=== PATIENT | female | born 1980 | race Caucasian/White ===

== ENCOUNTER 2016-03-30 12:33 | Outpatient (CLI) | payer MEDICAID | END 2016-03-30 12:34 | disposition home or self-care (01) | DX: Z36 Encounter for antenatal screening of mother (principal) ==

== ENCOUNTER 2016-04-22 11:45 | Outpatient (CLI) | payer MEDICAID | END 2016-04-22 11:46 | disposition home or self-care (01) | DX: Z36 Encounter for antenatal screening of mother (principal) ==

== ENCOUNTER 2016-06-03 12:41 | Outpatient (CLI) | payer MEDICAID | END 2016-06-03 12:42 | disposition home or self-care (01) | DX: Z36 Encounter for antenatal screening of mother (principal) ==

== ENCOUNTER 2016-06-15 19:18 | Outpatient (CLI) | payer MEDICAID ==
[2016-06-15] MEDS ORDERED: LACTATED RINGERS 500 ML IV ONE (19:40)
[2016-06-15] MEDS ORDERED: LACTATED RINGERS 1,000 ML IV ONE (20:00)
[2016-06-15 20:03] VITALS: BP 117/78
[2016-06-15] MEDS: ONDANSETRON 4 MG/2 ML VIAL IVP PRN ×2 (20:31→23:48)
[2016-06-15] MEDS ORDERED: SODIUM CHLORIDE FLUSH 0.9% 10 ML SYRINGE IVP ONE (23:52)
== END 2016-06-16 00:05 | disposition home or self-care (01) ==
LOC: WFO 19:18 → OB 19:20 → WFO 06-16 00:05
PROVIDERS: ATTEND Obstetrics & Gynecology
DX: O21.2 Late vomiting of pregnancy (principal); Z3A.31 31 weeks gestation of pregnancy
CPT/HCPCS: 96361; 96374; 96376; 99213

== ENCOUNTER 2016-07-29 15:47 | Outpatient (CLI) | payer MEDICAID | END 2016-07-29 15:48 | LOC: LAB.R 15:47 | PROVIDERS: ATTEND Obstetrics & Gynecology | DX: Z36 Encounter for antenatal screening of mother (principal) | CPT/HCPCS: 87081 ==

== ENCOUNTER 2016-08-04 21:48 | Outpatient (CLI) | payer MEDICAID ==
[2016-08-05 01:49] VITALS: BP 103/54
== END 2016-08-05 01:10 | disposition home or self-care (01) ==
LOC: WFO 21:48 → OB 21:51 → WFO 08-05 01:10
PROVIDERS: ATTEND Obstetrics & Gynecology
DX: O47.1 False labor at or after 37 completed weeks of gestation (principal); Z3A.38 38 weeks gestation of pregnancy
CPT/HCPCS: 99213

== ENCOUNTER 2016-08-05 05:29 | Inpatient (IN) | payer MEDICAID ==
[2016-08-05] MEDS ORDERED: SODIUM CHLORIDE FLUSH 0.9% 10 ML SYRINGE IVP PRN (05:58)
[2016-08-05] MEDS ORDERED: ONDANSETRON 4 MG/2 ML VIAL IVP PRN ×2 (05:58→09:31)
[2016-08-05] MEDS ORDERED: fentaNYL 100 MCG/2 ML VIAL IVP PRN (05:58)
[2016-08-05 06:57] LABS: BASOPHILS # (AUTO) 0.1 10^3/uL (0.0-0.1); BASOPHILS % (AUTO) 0.7 %; EOSINOPHILS # (AUTO) 0.2 10^3/uL (0.0-0.7); HCT - HEMATOCRIT 34.9 % (37.0-47.0); HGB - HEMOGLOBIN 11.9 g/dL (12.0-16.0); LYMPHOCYTES # (AUTO) 1.7 10^3/uL (1.5-3.5); LYMPHOCYTES % (AUTO) 14.8 %; MEAN CORPUSCULAR VOLUME 88.3 fL (81.0-99.0); MEAN PLATELET VOLUME 11.3 fL (7.9-10.8); MONOCYTES # (AUTO) 0.8 10^3/uL (0.0-1.0); MONOCYTES % (AUTO) 6.6 %; NEUTROPHILS # (AUTO) 8.9 10^3/uL (1.5-6.6); NEUTROPHILS % (AUTO) 75.9 %; RED BLOOD COUNT 3.95 10^6/uL (4.20-5.40); RED CELL DISTRIBUTION WIDTH 12.7 % (12.0-15.0); UNCORRECTED WHITE BLOOD COUNT 11.8 x10^3/uL; WHITE BLOOD COUNT 11.8 x10^3/uL (4.8-10.8)
[2016-08-05] MEDS ORDERED: traMADol 50 MG TABLET PO SCH (06:57)
[2016-08-05] MEDS: LACTATED RINGERS 1,000 ML IV SCH ×2 (07:01→09:29)
--- NOTE | 2016-08-05 07:07 | HISTORY & PHYSICAL EXAMINATION ---
DATE OF ADMISSION: 08/05/2016 IDENTIFICATION: This is a 35-year-old G5, P3-0-1-3 with a 38-4/7-week intrauterine . EDC 08/15/2016, changed via 5-week ultrasound. HISTORY OF PRESENT ILLNESS: The patient is a patient of [facility] who had presented on 08/04/2016 with complaints of pinkish-tinged vaginal discharge. She was concerned because with her last delivery she went so precipitously that she delivered in the parking lot of a [employer]. After thorough examinations over a prolonged period of time, the patient did not have any change in her cervical examination. She was sent home. She has represented this morning with complaints of loss of fluid this time. She is grossly ruptured on examination and light meconium is noted. The patient recalled that she ruptured at about 0400. By nurse exam, she is 4.5 cm dilated, 70% effaced, -3 station. Nonstress test is reactive and category 1. She is espinoza about every 2-3 minutes. The patient otherwise states the baby is moving well and she denies any thaddeus vaginal bleeding. She also denies any fevers, chills, nausea or vomiting. PAST MEDICAL HISTORY: Anxiety, depression, fibromyalgia, and chronic back pain. PAST SURGICAL HISTORY: None. ALLERGIES: NO KNOWN DRUG ALLERGIES. MEDICATIONS 1. vitamins. 2. Tramadol 50 mg 1 tab p.o. t.i.d. for chronic back pain. SOCIAL HISTORY: She denies tobacco, alcohol or illicit drug use. She does have a remote history of tobacco use. The father of her child is Rashaun, and they both have children Sandra, Delphine and Rylee. This is a male fetus with the potential name of Omari. PAST OBSTETRICAL HISTORY: Four term vaginal deliveries all at about 40 weeks' gestation, the largest baby weighing 7 pounds 5 ounces at time of delivery. She has had gestational diabetes in the past that was controlled only by diet. PAST GYNECOLOGICAL HISTORY: No abnormal Pap smears or sexually transmitted diseases. FAMILY HISTORY: No female carcinoma. REVIEW OF SYSTEMS: Negative unless otherwise stated. OBJECTIVE VITAL SIGNS: Temperature 97.9, heart rate 88, blood pressure 113/77, respiratory rate 20, O2 saturation 99% on room air. GENERAL: The patient is a well-developed, well-nourished female in no apparent distress. She is alert and oriented x3. CARDIOVASCULAR: Rate is regular. No murmurs or rubs. PULMONARY: Lungs are clear to auscultation bilaterally. ABDOMEN: Gravid, nontender. Estimated weight 7.5 pounds. LABS: Chlamydia and gonorrhea both negative. She is O positive. HIV negative. RPR nonreactive. Rubella immune. Hepatitis B surface antigen nonreactive. A 1-hour glucose tolerance test is 90, hemoglobin 11.4, GBS negative. anatomical survey is consistent with age and within normal limits. Placenta is posterior, 3-vessel umbilical cord. ASSESSMENT 1. A 35-year-old G5, P3-0-1-3 with a 38-4/7-week intrauterine . 2. Rupture of membranes. 3. History of precipitous deliveries. PLAN 1. Will admit. 2. Pain control with epidural if patient so desires. 3. Expect spontaneous vaginal delivery. 4. Routine labs including CBC and type and hold. JOB #: [id number] EXT JOB #:[id number] GORDON
[2016-08-05] MEDS: ALBUTEROL NEB 2.5 MG/3 ML INH PRN ×2 (07:30→16:05)
[2016-08-05] MEDS ORDERED: ALBUTEROL NEB 2.5 MG/3 ML INH PRN (07:37)
[2016-08-05] MEDS ORDERED: fent/BUPIV 2 MCG/0.125% 250 ML EP ONE (09:08)
[2016-08-05] MEDS ORDERED: ePHEDrine 50 MG/ML AMP IVP PRN (09:31)
[2016-08-05] MEDS ORDERED: METOCLOPRAMIDE 10 MG/2 ML VIAL IVP PRN (09:31)
[2016-08-05] MEDS ORDERED: diphenhydrAMINE INJ 50 MG/ML VIAL IVP PRN (09:31)
[2016-08-05] MEDS ORDERED: NALOXONE 0.4 MG/ML VIAL IVP PRN (09:31)
[2016-08-05] MEDS ORDERED: NALBUPHINE 20 MG/ML AMP IVP PRN (09:31)
[2016-08-05] MEDS ORDERED: LACTATED RINGERS 500 ML IV ONE (09:31)
[2016-08-05] MEDS ORDERED: fent/BUPIV 2 MCG/0.125% 250 ML EP PRN (09:31)
--- NOTE | 2016-08-05 09:36 | PROVIDER PROGRESS NOTE ---
Labor Progress Note - Instructions [place]/Slash: -Left hand click circles element as positive or present. -Right hand click slashes element as negative or not present. - Uterine Monitoring Uterine Monitoring Mode: positive: External toco Contraction Frequency (min/apart): Q3min Contraction Intensity: positive: Mild to moderate Uterine Resting Tone: positive: Soft - Monitoring Monitor Mode: positive: External ultrasound Heart Rate Baseline: 150 Heart Rate Variability: positive: Moderate (6-25 bmp) Accelerations: positive: Present, 15x15 Decelerations: positive: None Strip Review: positive: Category I - Vaginal Exam Dilation (in cm): [address] Miramontes - Labor Progress Note Labor Progress Note/Additional Text: Epidural being placed
[2016-08-05] MEDS ORDERED: ROPIVACAINE 0.2% PF 20 ML AMPULE SUBQ ONE (09:39)
--- NOTE | 2016-08-05 11:02 | PROVIDER PROGRESS NOTE ---
Labor Progress Note - Instructions [place]/Slash: -Left hand click circles element as positive or present. -Right hand click slashes element as negative or not present. - Uterine Monitoring Uterine Monitoring Mode: positive: External toco Contraction Frequency (min/apart): Q7min Contraction Intensity: positive: Mild to moderate Uterine Resting Tone: positive: Soft - Monitoring Monitor Mode: positive: External ultrasound Heart Rate Baseline: 125 Heart Rate Variability: positive: Moderate (6-25 bmp) Accelerations: positive: Present, 15x15 Decelerations: positive: None Strip Review: positive: Category I - Vaginal Exam Dilation (in cm): 5 Effacement (%): 70 Station: positive: 0 Cervical Position: positive: Midposition - Labor Progress Note Labor Progress Note/Additional Text: Cervical change is slow due inadequate contractions. Cat1 EFM tracing w Light Mec. We will begin Pit Augmentation. Discussed augmentation w patient and she consents. Epidural is effective.
[2016-08-05] MEDS ORDERED: OXYTOCIN/LACTATED RINGERS 250 ML IV SCH (12:00)
[2016-08-05] MEDS: ACETAMINOPHEN 325 MG TABLET PO SCH ×3 (12:38→23:37)
[2016-08-05] MEDS ORDERED: traMADol 50 MG TABLET PO PRN (12:57)
--- NOTE | 2016-08-05 14:47 | PROVIDER PROGRESS NOTE ---
Labor Progress Note - Instructions [place]/Slash: -Left hand click circles element as positive or present. -Right hand click slashes element as negative or not present. - Uterine Monitoring Uterine Monitoring Mode: positive: IUPC Contraction Frequency (min/apart): Q2-4min Contraction Intensity: positive: Mild to moderate, Moderate to strong, Other ( Peak pressure 65-80) Uterine Resting Tone: positive: Soft (Resting Tone 20-25) - Monitoring Monitor Mode: positive: Spiral electrode Heart Rate Baseline: 130-140 Heart Rate Variability: positive: Moderate (6-25 bmp) Accelerations: positive: Present, 10x10 (=/32 wks) Decelerations: positive: Early, Variable, Recurrent (>50% x20 min) (Kentrell 60 at first now 105) Strip Review: positive: Category II - Vaginal Exam Dilation (in cm): 7 Effacement (%): 70% Station: positive: 2 Cervical Position: positive: Anterior - Labor Progress Note Labor Progress Note/Additional Text: Pitocin off, IVF Bolus & O2; OR on Standby in case tracing degenerates
[2016-08-05] MEDS ORDERED: LIDOCAINE 1% 50 ML MDV ONE (15:19)
[2016-08-05] MEDS ORDERED: miSOPROStol 200 MCG TABLET ONE (15:35)
[2016-08-05] MEDS ORDERED: diphenhydrAMINE 25 MG CAPSULE PO PRN (16:04)
[2016-08-05] MEDS ORDERED: OXYTOCIN/LACTATED RINGERS 250 ML IV ONE (16:04)
[2016-08-05] MEDS ORDERED: HYDROCORTISONE/PRAMOXINE 10 GM PR PRN (16:04)
[2016-08-05] MEDS ORDERED: HYDROcod/ACETAM 5/325 MG TABLET PO PRN (16:04)
[2016-08-05] MEDS ORDERED: WITCH HAZEL/GLYCERIN 1 EACH MED..PAD TOP PRN (16:04)
[2016-08-05] MEDS: SODIUM CHLORIDE FLUSH 0.9% 10 ML SYRINGE IVP SCH (16:40)
[2016-08-05] MEDS: IBUPROFEN 600 MG TABLET PO SCH ×2 (16:46→23:38)
[2016-08-06] MEDS: oxyCOD/ACETAMIN 5 MG/325 MG TABLET PO PRN ×5 (01:02→20:56)
[2016-08-06] MEDS: LACTATED RINGERS 1,000 ML IV SCH ×4 (04:24→04:27)
[2016-08-06] MEDS: SODIUM CHLORIDE FLUSH 0.9% 10 ML SYRINGE IVP SCH ×2 (04:24→04:26)
[2016-08-06] MEDS: ACETAMINOPHEN 325 MG TABLET PO SCH ×3 (05:48→18:14)
[2016-08-06] MEDS: IBUPROFEN 600 MG TABLET PO SCH ×3 (05:49→18:14)
--- NOTE | 2016-08-06 07:58 | PROCEDURE REPORT ---
DATE OF PROCEDURE: 08/05/2016 00:00:00 PREOPERATIVE DIAGNOSES 1. A 38-week 4-day gestation of labor. 2. Category II heart tracing. 3. Maternal asthma. 4. Anxiety and depression. 5. Fibromyalgia and back pain. 6. Light meconium. POST-DELIVERY DIAGNOSES 1. A 38-week 4-day gestation of labor. 2. Category II heart tracing. 3. Maternal asthma. 4. Anxiety and depression. 5. Fibromyalgia and back pain. 6. Light meconium. PROCEDURE: Vaginal delivery over intact perineum of a living male infant. HOGSHEAD COOPER: Duc Iglesias MD, FACOG. ANESTHESIA: Lelo Arguelles MD, epidural. GAS PLUMBER: Chen Mortensen MD (muffler hand). ESTIMATED BLOOD LOSS: 200-250. COMPLICATIONS: None. FINDINGS: At 0345 hours, a living male was born weighing 8 pounds 3 ounces and scoring Apgars of 8/9. There was light meconium that was not a factor. There were no evident congenital anomalies or trauma. The cord was a 3-vessel configuration and there was no cord entanglement. The placenta was delivered intact and grade 2. There was light placental staining with meconium. Inspection of the vulva, vagina, and cervix found it to be completely intact. TECHNIQUE: The patient received an epidural and had dense pain relief for the most part. She had init ially Pitocin augmentation that was not well tolerated and precipitated deep variable/head compressio n decels down to the 60s at times. Variability was maintained. Resuscitation was begun with maternal oxygen, IV fluid bolus, discontinuation of Pitocin, and repositioning. The decels lessened and the st rip stabilized. The patient began to contract on her own. There was descent of the head and she was c omplete at or about 1500 hours. She began to push with good effort. She smoothly brought the head to the perineum. She crowned atraumatically from an OA position. Shoulders were delivered without difficulty and infant placed on the maternal abdomen. Dr. Mortensen wa s in attendance and evaluated the infant, reference her notes. With time, the cord stopped pulsation and was doubly clamped/transected. The did well. Cord blood sample was taken. The placenta was delivered intact without difficulty. The uterus responded to Pitocin and massage. Mo ther, father, infant all bonded well. The patient had coughed during the second phase of labor and re ceived a nebulizer treatment after delivery. JOB #: [id number] EXT JOB #:[id number]
--- NOTE | 2016-08-06 11:08 | PROVIDER PROGRESS NOTE ---
Subjective - General Admit Date: 08/05/16 Procedure Date: 08/05/16 Post Op Days: 1 Procedure Performed: NVD - Review of Systems Wound/Incisions: positive: Healing well, Drainage (Mild nonfoul Lochia) General: positive: No symptoms HEENT: positive: No symptoms Pulmonary: positive: Wheezing Cardiovascular: positive: No symptoms Gastrointestinal: positive: No symptoms Genitourinary: positive: No symptoms Musculoskeletal: positive: No symptoms Skin: positive: No symptoms Psychiatric: positive: No symptoms Objective - Patient Data Vital Signs: Vital Signs x48h Temp Pulse Resp BP Pulse Ox 08/06/16 07:42 75 16 135/82 H 100 08/06/16 04:02 98.1 F 85 18 127/76 100 Weight: Weight 08/04/16 08/05/16 08/06/16 23:59 23:59 23:59 Weight (kg) 92.986 kg Intake & Output: Intake and Output Totals x24h 08/04/16 08/05/16 08/06/16 23:59 23:59 23:59 Intake Total 800 Output Total 800 Balance 0 - Lab Results Lab Results: 08/05/16 06:35 - Current Medications Current Medications: Current Medications Generic Name Dose Route Start Last Admin Trade Name Freq PRN Reason Stop Dose Admin Acetaminophen 650 mg 08/05/16 06:00 08/06/16 05:48 Tylenol PO 650 mg Q6H BAIRON Administration Albuterol 2.5 mg 08/05/16 06:57 08/05/16 16:05 INH 2.5 mg Q4HR PRN Administration Wheezing Lactated Ringer's 1,000 mls @ 150 mls/hr 08/05/16 06:00 08/06/16 04:27 Lr IV Not Given .Q6H40M BAIRON Lactated Ringer's 1,000 mls @ 100 mls/hr 08/05/16 17:00 08/06/16 04:27 Lr IV Not Given .Q10H BAIRON Ibuprofen 600 mg 08/05/16 17:00 08/06/16 05:49 Motrin PO 600 mg Q6H BAIRON Administration Nalbuphine HCl 2.5 - 5 mg 08/05/16 09:31 08/05/16 13:23 Nubain IVP 5 mg Q4HR PRN Administration ITCHING Ondansetron HCl 4 mg 08/05/16 05:58 08/05/16 07:01 Zofran Inj IVP 4 mg Q4H PRN Administration Nausea / Vomiting Oxycodone/Acetaminophen 1 tab 08/06/16 00:46 08/06/16 10:33 Percocet 5 Mg/325 Mg PO 1 tab Q4HR PRN Administration PAIN Sodium Chloride 10 ml 08/05/16 06:00 08/06/16 04:26 Normal Saline Flush 0.9% IVP Not Given Q8HR BAIRON Physical Exam - Physical Exam General: positive: No acute distress HEENT: positive: Moist mucous membranes Neck: positive: Supple w/out meningeal sx Resipratory: positive: Clear to ausultation clotilde Abdomen: positive: Normal Bowel sounds Female : positive: Enlarged uterus (16 wk firm) Extremities: positive: No pedal edema Neurologic: positive: Alert and Oriented X 3, Normal Sensation (Normal mood) Assessment/Plan - Assessment/Plan Assessment: RECOVERING WELL. ASTHMA CONTROLLED W ALBUTEROL. CONTINUE SUPPORTIVE CARE.
[2016-08-06] MEDS ORDERED: ALBUTEROL NEB 2.5 MG/3 ML INH PRN (11:30)
[2016-08-07] MEDS: ACETAMINOPHEN 325 MG TABLET PO SCH ×4 (00:10→13:55)
[2016-08-07] MEDS: oxyCOD/ACETAMIN 5 MG/325 MG TABLET PO PRN ×3 (00:12→13:55)
[2016-08-07] MEDS: IBUPROFEN 600 MG TABLET PO SCH ×3 (00:12→13:54)
--- NOTE | 2016-08-07 07:55 | Discharge Plan ---
Discharge Plan Disposition: 01 Home, Self Care Condition: Good Diet: Regular Activity Restrictions: Activity as Tolerated Shower Restrictions: No Driving Restrictions: No No Smoking: If you smoke, Please STOP! Call for help. Follow-up with: Duc Iglesias MD [Provider Admit Priv/Credential] -
[2016-08-07 10:35] VITALS: BP 125/85
--- NOTE | 2016-08-07 18:52 | Labor Flowsheet ---
Labor Flowsheet Datetime Report Generated by CPN: 08/07/2016 18:51 Datetime: 08/07/2016 10:31 VITAL SIGNS NBP Sys/Meli/Mean (mmHg): 125 : 85 : 95 Pulse: 91 LaborFlag: Labor Datetime: 08/07/2016 10:28 Temperature (F): 97.3 Temperature (C): 36.3 Temperature (C): 36.3 Datetime: 08/07/2016 08:05 SpO2 (%): 100 Datetime: 08/05/2016 15:38 STAGE 2 Pushing Position: Pushing with Contractions Pushing Progress: Descent with Pushing; with Pushing; Pushing Effectively with Contraction s Datetime: 08/05/2016 15:35 Preparation for Delivery: Setup for Delivery Datetime: 08/05/2016 15:26 VAGINAL EXAM Dilatation (cm): 10.0 Effacement (%): 100 Station: 2 Exam by: Dr. Davies Vaginal Bleeding: Normal Show Cervix, Consistency: Soft Cervix, Position: Anterior Datetime: 08/05/2016 15:00 Stage of : Labor UTERINE ACTIVITY Monitor Mode: Internal Frequency (min): 2-3 Quality: Moderate Duration (sec): 60-70 Pattern: Normal: <= 5 Contractions in 10 Minutes Resting Tone (Palpate): Relaxed Resting Tone IUP (mmHg): 20 Intensity IUP (mmHg): 60-85 ASSESSMENT A Monitor Mode: Internal Scalp Electrode FHR Baseline Rate : 140 FHR Baseline Changes: No Baseline Change Variability: Moderate 6-25 bpm Accelerations: 15X15 Decelerations: Variable Category: Category II Oxygen Amount (LPM): 10 Oxygen Method: Non-Rebreather Provider Reviewed Strip: Yes COMMUNICATION Communication: Provider at Bedside Provider Notified (Name): Iglesias Datetime: 08/05/2016 14:55 Communication Comments: call to Festus request her attendance for delivery. She's on her way f rom [place] Datetime: 08/05/2016 14:25 I/O Interventions: Barraza Cath Inserted Datetime: 08/05/2016 14:17 Medication Comments: LR Bolus again Datetime: 08/05/2016 14:10 Monitor Interventions for UA: IUPC Inserted Actions for Decelerations: Side to Side; Oxygen Applied; Pitocin Off; Sterile Vaginal Exam; P rovider Notified Comments: variables to70s Datetime: 08/05/2016 13:56 Notification Reason: Status Update; Status; Labor Status; Uterine Activity Datetime: 08/05/2016 13:50 Patient Position/Activity: HOB Lowered; Right Lateral Patient Care Comments: pt moving freq and dcing EFM/O2sat Datetime: 08/05/2016 13:47 Anesthesia Comments: bolus per Dr Arguelles Datetime: 08/05/2016 13:38 Membrane Status: Meconium Datetime: 08/05/2016 13:30 MEDICATIONS Pitocin (milliunits): Increased to @ 4 Anesthesia Level Check: T10- Umbilicus Datetime: 08/05/2016 10:00 Pain Relief Measures: Epidural Given Datetime: 08/05/2016 09:20 PATIENT CARE IV/Blood Work: New IV Bag Hung Datetime: 08/05/2016 09:15 ANESTHESIA Anesthesia Plans: Epidural Epidural Procedure Other: Pump Started Datetime: 08/05/2016 09:03 Epidural Positioning: Sitting Epidural Procedure: Cath Placed; Test Dose Datetime: 08/05/2016 08:10 Comfort Measures: Anesthesia Notified Hygiene: Underpad Changed Strip Reviewed by: Dr. Iglesias Datetime: 08/05/2016 07:55 Respirations: 18 Temperature Route: Tympanic Datetime: 08/05/2016 07:00 PAIN Pain Scale: 7 Pain Presence: Intermittent Pain Type: Contraction; Ache Pain Location: Abdomen Pain Goal: 8 Pain Coping: Talking Through Contractions; Declines Medication or Epidural Antiemetics/Antacids: Zofran (mg) @ 4 Datetime: 08/05/2016 06:35 MATERNAL ASSESSMENT Level of Consciousness: Fully Conscious DTR's/Clonus: DTRs 2+; No Clonus Headache: Denies Breath Sounds, Left: Wheezes Breath Sounds, Right: Wheezes Nausea/Vomiting: Denies RUQ Epigastric Pain: Denies Maternal Comments: bilateral wheezing posterior lower lungs; pt states has had a productive; using inhaler
--- NOTE | 2016-08-09 10:00 | DISCHARGE SUMMARY ---
DATE OF ADMISSION: 08/05/2016 DATE OF DISCHARGE: 08/07/2016 DIAGNOSES: 1. Term labor. 2. Category 2 heart tracing. 3. Maternal asthma. 4. Anxiety and depression. 5. Fibromyalgia and back pain. 6. Light meconium, not complicating the delivery. PROCEDURE: Vaginal delivery over intact perineum of a living male . CONSULTANTS: Lelo Arguelles MD, anesthesia for epidural; Cehn Mortensen MD, for pediatrics. COMPLICATIONS: None. HISTORY: The patient had been seen prior to admission for complaints of labor, but did not have cervical change, and therefore, was discharged home. Within 24 hours she presented again, this time with evidence of ruptured membranes. Her initial dilation was 4.5 cm, 70% effacement, -3 station. labs survey: O positive antibody screen negative, HIV negative, RPR negative, rubella immune, hepatitis B surface antigen negative. One-hour glucose challenge test 90. GBS negative. Chlamydia and gonorrhea negative. HOSPITAL COURSE: She was admitted in labor with a category 1 strip. Epidural was uneventfully placed by Dr. Arguelles and she was allowed to continue in labor without problems. By 11 a.m. leg neck was noted and her contractions had fallen out in intensity, prompting initiation of Pitocin augmentation. By 14:40 hours there were heart tracing changes that included recurrent variables down to the 60's, that prompted resuscitation with IV fluid bolus, O2, and discontinuation of Pitocin. At that time dilation was 7 cm and positive 2 station. The tracing recovered and the contractions began again spontaneously. At 03:45 a living male was born weighing 8 pounds 3 ounces scoring ' s of 8 and 9. Placenta was delivered intact without any cord entanglement. Pediatrics was present for the delivery due to the meconium. Reference delivery note. There were no complications and total blood loss was 250. After delivery, the patient experienced some chest tightness and was given a hand-held nebulizer treatment and again encouraged to use Albuterol. On day 1 patient recovered, began to nurse without significant difficulty. She remained fatigued. We continued Albuterol and plan for discharge on day 2. On day 2 the patient was recovered and felt ready for discharge. Warning signs and call back instructions were reviewed. DISCHARGE MEDICATIONS: 1. vitamins with iron. 2. Motrin 800 mg p.o. q. 8 hours. 3. Erwin 325 q. 4 hours p.r.n. 4. Colace 100 b.i.d. FOLLOWUP: The patient will be seen in 6 weeks at the [facility]. Additionally she was encouraged to visit her PCP for evaluation and follow on treatment of asthma. JOB #: [id number] EXT JOB #:[id number] GORDON
== END 2016-08-07 15:45 | disposition home or self-care (01) | DRG 775 ==
LOC: WFO 05:29 → OB 05:29 → WFO 05:57 → OB 05:58
PROVIDERS: ADMIT Obstetrics & Gynecology; ATTEND Obstetrics & Gynecology
PROC: 10E0XZZ Delivery of Products of Conception, External Approach (ICD-10-PCS; principal; 2016-08-05)
DX: O77.0 Labor and delivery complicated by meconium in amniotic fluid (principal); O99.354 Diseases of the nervous system complicating childbirth; O47.1 False labor at or after 37 completed weeks of gestation; Z37.0 Single live birth; Z3A.38 38 weeks gestation of pregnancy; O76 Abnormality in fetal heart rate and rhythm complicating labor and delivery; O99.52 Diseases of the respiratory system complicating childbirth; J45.909 Unspecified asthma, uncomplicated; O99.344 Other mental disorders complicating childbirth; F41.9 Anxiety disorder, unspecified; F32.9 Major depressive disorder, single episode, unspecified; O99.89 Other specified diseases and conditions complicating pregnancy, childbirth and the puerperium; M79.7 Fibromyalgia; G89.29 Other chronic pain; M54.9 Dorsalgia, unspecified; Z79.891 Long term (current) use of opiate analgesic; Z87.891 Personal history of nicotine dependence; Z86.32 Personal history of gestational diabetes
CPT/HCPCS: 36415; 85025; 94640; 99213

== ENCOUNTER 2017-07-22 08:00 | Outpatient (CLI) | payer MEDICAID ==
[2017-07-22 19:22] LABS: H. PYLORIS ANTIGEN STL NEGATIVE (Negative)
== END 2017-07-22 08:01 | disposition home or self-care (01) ==
LOC: LAB.WCP 08:00
PROVIDERS: ATTEND Family Medicine
DX: K29.60 Other gastritis without bleeding (principal)
CPT/HCPCS: 87338

== ENCOUNTER 2017-12-10 23:30 | Emergency (ER) | payer MEDICAID ==
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
[2017-12-11 01:05] VITALS: BP 120/69
== END 2017-12-11 01:04 | disposition home or self-care (01) ==
LOC: ED 23:30
DX: Z04.71 Encounter for examination and observation following alleged adult physical abuse (principal)
CPT/HCPCS: 99282; 99283

== ENCOUNTER 2018-01-24 12:31 | Emergency (ER) | payer MEDICAID ==
--- NOTE | 2018-01-24 13:34 | ED Physician Documentation ---
PD HPI BACK INJURY - Stated complaint Stated Complaint: BACK PX - History obtained from History obtained from: Patient - History of Present Illness Location: Both, Lower Type of injury: Other (had long car ride to [facility] twice, so felt stiff after those.). No: Fall, Twist Timing - onset: Yesterday Timing - duration: Days (1-2) Timing - details: Gradual onset, Still present, Waxing and waning Quality: Pain, Spasm Improved by: Rest. No: Meds Worsened by: Moving Associated symptoms: No: Fever, Weakness, Numbness, Incontinent of urine Contributing factors: No: Prior back surgery Similar symptoms before: No diagnosis (low back pain episodically since in her twenties.) Recently seen: Clinic (for sinusitis couple weeks ago and on abx at that time. Feeling improved with just mild residual cough.) Review of Systems Constitutional: denies: Fever, Chills, Myalgias Nose: denies: Rhinorrhea / runny nose, Congestion Throat: denies: Sore throat Cardiac: denies: Chest pain / pressure Respiratory: reports: Cough GI: denies: Abdominal Pain, Vomiting, Diarrhea : denies: Dysuria, Frequency, Hematuria, Discharge Skin: denies: Rash, Lesions Musculoskeletal: reports: Back pain Neurologic: denies: Focal weakness, Numbness PD PAST MEDICAL HISTORY - Past Medical History Cardiovascular: None Respiratory: None Musculoskeletal: Fibromyalgia, Chronic back pain - Past Surgical History Past Surgical History: No - Present Medications Home Medications: Ambulatory Orders Medication Instructions Recorded Confirmed traMADol [Ultram] 150 mg PO BID 01/20/14 12/10/17 Dexamethasone [Decadron] 4 mg PO DAILY #5 tablet 01/24/18 Hydrocodone/Acetaminophen [[place] 1 each PO Q6H PRN #20 tablet 01/24/18 5-325 Tablet] Methocarbamol [Robaxin] 500 mg PO Q6H PRN #25 tablet 01/24/18 Naproxen 500 mg PO BID #20 tablet 01/24/18 - Allergies Allergies/Adverse Reactions: Allergies Allergy/AdvReac Type Severity Reaction Status Date / Time No Known Drug Allergies Allergy Verified 01/24/18 14:16 - Social History Does the pt smoke?: No Smoking Status: Never smoker Does the pt drink ETOH?: No Does the pt have substance abuse?: No - Immunizations Immunizations are current?: Yes - POLST Patient has POLST: No PD ED PE NORMAL - Vitals Vital signs reviewed: Yes - General General: Alert and oriented X 3, Well developed/nourished, Other (appears uncom fortable with ROM of the back) - Cardiac Cardiac: RRR, No murmur - Respiratory Respiratory: Clear bilaterally - Abdomen Abdomen: Normal bowel sounds, Soft, Non tender, Non distended, Other (obese truncal) - Back Back: No CVA TTP, No spinal TTP, Other (tender in muscles of low back, not midline per se. No rash nor sores. ) - Derm Derm: Normal color, Warm and dry, No rash - Extremities Extremities: No edema, No calf tenderness / cord - Neuro Neuro: Alert and oriented X 3, No motor deficit, No sensory deficit, Normal speech, Other (knee relfexes present and normal. ) Results - Vitals Vitals: Vital Signs - 24 hr 01/24/18 01/24/18 12:50 14:30 Temperature 36.5 C Heart Rate 102 H 88 Respiratory 16 16 Rate Blood Pressure 131/90 H 120/70 O2 Saturation 99 Oxygen O2 Source Room air PD MEDICAL DECISION MAKING - ED course Complexity details: re-evaluated patient (no red flags on history/exam - will treat as myofascial back pain. ), considered differential (Gradual an undulating low back pain with some tingling at times down the left lateral leg. No red flags otherwise. She just finished some Bactrim antibiotics for sinus infection. She denies any fevers recently. I think that would be unrelated.), d/w patient Departure - Departure Disposition: 01 Home, Self Care Clinical Impression: Acute exacerbation of chronic low back pain Condition: Stable Record reviewed to determine appropriate education?: Yes Instructions: ED Low Back Pain Injury Follow-Up: Madonna Nieves DO [Primary Care Provider] - Prescriptions: Dexamethasone [Decadron] 4 mg PO DAILY #5 tablet Hydrocodone/Acetaminophen [[place] 5-325 Tablet] 1 each PO Q6H PRN #20 tablet PRN Reason: Pain Methocarbamol [Robaxin] 500 mg PO Q6H PRN #25 tablet PRN Reason: Spasms Naproxen 500 mg PO BID #20 tablet Comments: Heat or ice to the low back which ever feels better. He can do physical treatments such as massage and chiropractic can help as well. Gentle stretching but no heavy lifting if you are able to. I realize the small kids need for lifting when they do. Use naproxen and Decadron anti-inflammatories as directed and add Robaxin muscle relaxant for spasms and stiffness. Continue usual medications. Add hydrocodone if needed for worse pain. Recheck if not improving over the next several days to week. Discharge Date/Time: 01/24/18 14:32
[2018-01-24] MEDS ORDERED: METHOCARBAMOL 500 MG TABLET PO STA (13:57)
[2018-01-24] MEDS ORDERED: DEXAMETHASONE 10 MG/ML VIAL PO STA (13:57)
[2018-01-24] MEDS ORDERED: ACETAMINOPHEN 325 MG TABLET PO STA (13:57)
[2018-01-24] MEDS ORDERED: KETOROLAC 30 MG/ML VIAL IM STA (13:57)
[2018-01-24] MEDS ORDERED: CHERRY SYRUP 10 ML UDC PO ONE (14:08)
[2018-01-24 14:36] VITALS: BP 120/70
== END 2018-01-24 14:32 | disposition home or self-care (01) ==
LOC: ED 12:31
DX: M54.5 Low back pain (principal); G89.29 Other chronic pain; M79.7 Fibromyalgia
CPT/HCPCS: 96372; 99283; A9270

== ENCOUNTER 2018-09-15 08:00 | Outpatient (CLI) | payer MEDICAID | END 2018-09-15 23:59 | disposition home or self-care (01) | LOC: LAB.WCP 08:00 | PROVIDERS: ATTEND Physician Assistant Medical | DX: N91.2 Amenorrhea, unspecified (principal) | CPT/HCPCS: 36415; 84702 ==

== ENCOUNTER 2018-11-07 10:57 | Outpatient (CLI) | payer MEDICAID ==
--- NOTE | 2018-11-07 15:00 | Ultrasound Report ---
Reason: POSITIVE TEST Procedure Date: 11/07/2018 Accession Number: [id number] / [id number] Procedure: US - OB First Trimester CPT Code: FULL RESULT: EXAM: FIRST TRIMESTER OBSTETRIC ULTRASOUND (Less than 11 weeks) EXAM DATE: 11/07/2018 11:12 AM. CLINICAL HISTORY: Positive test. LMP: Unknown. COMPARISONS: No recent exams. TECHNIQUE: Transabdominal ultrasound examination with static image documentation. CLINICAL DATES: EGA 13 weeks 3 days with ROXANN 05/12/2019 based on LMP. ASSESSMENT: Gestational Sac: Single intrauterine. Mean gestational sac diameter: 65.9 mm = 13 weeks 0 days. Embryo: CRL (crown-rump length) 70.6 mm = 13 weeks 2 days. Cardiac activity: 155 beats per minute. Yolk sac: Not visualized. Amniotic fluid: Not accurately assessed at this gestational age. Early placenta: Anterior.. Other: No perigestational fluid collection demonstrated. MATERNAL STRUCTURES: Uterus: Unremarkable. Cervix: Closed. Right Ovary/Adnexa: The ovary measures 3.3 x 3.7 x 2.6 cm, volume 16.6 cc. There is a corpus luteal cyst measuring 1.9 x 1.5 x 2.2 cm.. Left Ovary/Adnexa: Left ovary is not visualized. Free Fluid: None. Other: None. IMPRESSION: 1. Single viable intrauterine at EGA 13 weeks 2 days with ROXANN 05/13/2019 based on crown-rump length, which is concordant with clinical dates. 2. Assigned dating is ROXANN 05/13/2019 based on current ultrasound. RADIA
== END 2018-11-07 10:58 | disposition home or self-care (01) ==
LOC: DI 10:57
PROVIDERS: ATTEND Obstetrics & Gynecology
DX: Z32.01 Encounter for pregnancy test, result positive (principal)
CPT/HCPCS: 76801

== ENCOUNTER 2018-11-11 08:00 | Outpatient (CLI) | payer MEDICAID ==
[2018-11-11 21:59] LABS: TRICHOMONAS VAGINALIS DNA NEGATIVE (NEGATIVE)
== END 2018-11-11 23:59 | disposition home or self-care (01) ==
LOC: LAB.R 08:00
PROVIDERS: ATTEND Obstetrics & Gynecology
DX: N76.0 Acute vaginitis (principal)
CPT/HCPCS: 81001; 87086; 87491; 87591; 87661

== ENCOUNTER 2018-11-21 16:01 | Outpatient (CLI) | payer MEDICAID ==
[2018-11-21 17:40] LABS: BASOPHILS % (AUTO) 0.4 %; EOSINOPHILS # (AUTO) 0.2 10^3/uL (0.0-0.7); EOSINOPHILS % (AUTO) 2.2 %; HGB - HEMOGLOBIN 11.9 g/dL (12.0-16.0); LYMPHOCYTES # (AUTO) 1.9 10^3/uL (1.5-3.5); LYMPHOCYTES % (AUTO) 19.4 %; MEAN CORPUSCULAR HEMOGLOBIN 31.4 pg (27.0-31.0); MEAN CORPUSCULAR VOLUME 89.7 fL (81.0-99.0); MEAN PLATELET VOLUME 10.8 fL (7.9-10.8); MONOCYTES # (AUTO) 0.5 10^3/uL (0.0-1.0); MONOCYTES % (AUTO) 5.1 %; NEUTROPHILS # (AUTO) 7.1 10^3/uL (1.5-6.6); NEUTROPHILS % (AUTO) 72.4 %; PLT - PLATELET COUNT 169 10^3/uL (130-450); RED BLOOD COUNT 3.79 10^6/uL (4.20-5.40); RED CELL DISTRIBUTION WIDTH 11.9 % (12.0-15.0); WHITE BLOOD COUNT 9.8 x10^3/uL (4.8-10.8)
[2018-11-21 17:56] LABS: BILIRUBIN,URINE NEGATIVE (NEGATIVE); GLUCOSE, URINE (UA) 500 mg/dL (NEGATIVE); KETONES,URINE (UA) TRACE mg/dL (NEGATIVE); LEUKOCYTE ESTERASE, URINE NEGATIVE (NEGATIVE); NITRITE,URINE NEGATIVE (NEGATIVE); OCCULT BLOOD,URINE NEGATIVE (NEGATIVE); PH,URINE 5.5 PH (5.0-7.5); PROTEIN,URINE NEGATIVE (NEGATIVE); UROBILINOGEN,URINE 0.2 (NORMAL) E.U./dL (NORMAL)
[2018-11-21 18:12] LABS: HB2 TOTAL 12.4 g/dL; HEMOGLOBIN A1C 0.43 g/dL; HEMOGLOBIN A1C % 5.3 % (4.6-6.2)
[2018-11-21 18:18] LABS: BACTERIA,URINE Moderate /HPF (None Seen); CLARITY,URINE CLEAR (CLEAR); RBC,URINE None Seen /HPF (0-5); SQUAMOUS EPITHELIAL CELL,UR MANY Squamous (<= Few)
[2018-11-21 22:34] LABS: TRICHOMONAS VAGINALIS DNA NEGATIVE (NEGATIVE)
[2018-11-22 11:48] LABS: HEPATITIS B SURFACE ANTIGEN NON-REACTIVE (NON-REACTIVE); HEPATITIS C ANTIBODY NON-REACTIVE (NON-REACTIVE)
[2018-11-22 14:15] LABS: HIV AG/AB 4TH GEN NON-REACTIVE (NON-REACTIVE)
== END 2018-11-21 16:02 | disposition home or self-care (01) ==
LOC: LAB 16:01
PROVIDERS: ATTEND Obstetrics & Gynecology
DX: Z36.89 Encounter for other specified antenatal screening (principal); Z12.4 Encounter for screening for malignant neoplasm of cervix; Z33.1 Pregnant state, incidental; Z86.32 Personal history of gestational diabetes; N76.0 Acute vaginitis
CPT/HCPCS: 36415; 81001; 81599; 82950; 83036; 85025; 86592; 86762; 86803; 86850; 86900; 86901; 87086; 87340; 87389; 87491; 87591; 87661

== ENCOUNTER 2018-12-26 10:53 | Outpatient (CLI) | payer MEDICAID ==
--- NOTE | 2018-12-26 15:15 | Ultrasound Report ---
Reason: SUPERVISION NORMAL MULTIPAROUS Procedure Date: 12/26/2018 Accession Number: [id number] / [id number] Procedure: US - OB Detailed Eval CPT Code: Final Report FULL RESULT: EXAM: COMPLETE OBSTETRICAL ULTRASOUND EXAM DATE: 12/26/2018 12:56 PM. CLINICAL HISTORY: anatomic survey. COMPARISON: OB DETAILED EVAL 03/30/2016 1:57 PM. TECHNIQUE: Real-time sonographic evaluation of the fetus performed by the metallurgist process. Multiple loss prevention representative static images were saved for review. DATING: Established EGA 20 weeks 3 days with ROXANN 05/12/2019 based on LMP/working due date. EGA 20 weeks 2 days with ROXANN 05/13/2019 based on first ultrasound. EGA 20 weeks 1 day with ROXANN 05/14/2019 based on the current ultrasound. GENERAL EVALUATION Gibson . Cardiac activity: 136 bpm. movement: Visualized. Presentation: Variable. Placenta: Anterior position. No evidence for previa. Umbilical cord: Limited visualization of the cord, presence of 3 vessels not definitely established. Central placental cord origin. Amniotic fluid: Subjectively normal. MVP 5.7 cm and PUJA 17.7 cm. BIOMETRY Bi-Parietal Diameter (BPD): 4.7 cm, 20 weeks 3 days. Head Circumference (HC): 17.6 cm, 20 weeks 1 day. Abdominal Circumference (AC): 15.1 cm, 20 weeks 2 days. Femur Length (FL): 3.1 cm, 19 weeks 5 days. Estimated Weight: 331 g, 27th percentile for 20 weeks 3 days. ANATOMY The nose and lips, four-chamber cardiac view and right ventricular outflow tract, abdominal cord insertion are not adequately visualized. The intracranial structures, profile, spine, left ventricular outflow tract, stomach, abdominal wall and cord insertion, diaphragm, kidneys, bladder, and extremities were visualized and demonstrate no abnormality. MATERNAL STRUCTURES Uterus: Unremarkable. Cervix: Long and closed. Transabdominal length 4.3 cm. Right ovary/adnexa: Unremarkable. Left ovary/adnexa: Unremarkable. Free fluid: None. IMPRESSION: 1. Gibson live intrauterine with gestational age 20 weeks 3 days based on LMP. 2. Estimated weight is within expected limits for assigned dating. 3. Incomplete anatomic survey with no abnormality detected. RADIA
== END 2018-12-26 10:54 | disposition home or self-care (01) ==
LOC: DI 10:53
PROVIDERS: ATTEND Obstetrics & Gynecology
DX: Z34.80 Encounter for supervision of other normal pregnancy, unspecified trimester (principal)
CPT/HCPCS: 76811

== ENCOUNTER 2019-01-09 16:43 | Outpatient (CLI) | payer MEDICAID ==
--- NOTE | 2019-01-10 12:27 | Ultrasound Report ---
Reason: ABN US, SUPER OF NORMAL PREG Procedure Date: 01/09/2019 Accession Number: [id number] / [id number] Procedure: US - OB F/U or Repeat CPT Code: Final Report FULL RESULT: EXAM: FOLLOW-UP OBSTETRICAL ULTRASOUND EXAM DATE: 01/09/2019 06:01 PM. CLINICAL HISTORY: Follow-up anatomic survey. COMPARISON: Complete OB ultrasound 12/26/2018. TECHNIQUE: Real-time sonographic evaluation of the fetus performed by the director corporate sales. Multiple chemical sales representative static images were saved for review. DATING: Established EGA 22 weeks/3 days with ROXANN 05/12/2019 based on LMP.. GENERAL EVALUATION Gibson . Cardiac activity: 140 bpm. movement: Visualized. Presentation: Variable Placenta: Anterior position. Amniotic fluid: Normal. PUJA 16.7 cm. MVP 5.4 cm. TARGETED ANATOMIC SURVEY Slightly limited by motion. The following structures were seen and appear grossly unremarkable given exam limitations: Four-chamber heart, right ventricular outflow tract, cord insertion and nose and lips. MATERNAL STRUCTURES Cervical length 4.5 cm IMPRESSION: 1. Live intrauterine fetus in variable presentation. 2. Targeted anatomic survey demonstrates grossly unremarkable four-chamber heart, RVOT, cord insertion and nose and lips. RADIA
== END 2019-01-09 16:44 | disposition home or self-care (01) ==
LOC: DI 16:43
PROVIDERS: ATTEND Obstetrics & Gynecology
DX: O28.3 Abnormal ultrasonic finding on antenatal screening of mother (principal); Z3A.22 22 weeks gestation of pregnancy
CPT/HCPCS: 76816

== ENCOUNTER 2019-04-13 14:48 | Outpatient (CLI) | payer MEDICAID ==
[2019-04-14 21:11] LABS: TRICHOMONAS VAGINALIS DNA NEGATIVE (NEGATIVE)
== END 2019-04-13 23:59 | disposition home or self-care (01) ==
LOC: LAB.R 14:48
PROVIDERS: ATTEND Obstetrics & Gynecology
DX: Z36.89 Encounter for other specified antenatal screening (principal)
CPT/HCPCS: 87491; 87591; 87661; 87797

== ENCOUNTER 2019-04-18 14:50 | Outpatient (CLI) | payer MEDICAID | END 2019-04-18 23:59 | disposition home or self-care (01) | LOC: LAB.WCP 14:50 | PROVIDERS: ATTEND Nurse Practitioner Family | DX: R05 Cough (principal) | CPT/HCPCS: 81599; 87275; 87276 ==

== ENCOUNTER 2019-04-23 14:27 | Outpatient (CLI) | payer MEDICAID ==
[2019-04-23 15:00] VITALS: BP 124/66
--- NOTE | 2019-04-23 15:16 | HISTORY & PHYSICAL EXAMINATION ---
Admit History - Visit Reason Visit Reason: Contractions (38yo at 37 2/7 weeks by LMP c/w 13 week scan GBS neg O+ here with c/o increased cramping and low back pain since yesterday. Feeling more pressure. No leakage of fluid or bleeding, normal activity. Her usual nausea/vomiting throughout unchanged. No fever or dysuria. Recovering from URI/COVID 19 neg. Pt has h/o precipitous deliveries, one ouut of hospital.) - : 6 Parity: 4 Premature: 0 Ectopic: 1 : 0 Care: positive: [facility] Risk/History: positive: Gestational diabetes Complications This : positive: Gestational diabetes, Other (AMA, maternal obesity, URI, anemia) Smoking Status: Never smoker - Mother's Labs Mother's Blood Type: positive: O Mother's RH: positive: Positive GBS: positive: Group B Step Negative Rubella Status: positive: Immune (HIV/HepB/RPR NR GC/chlam neg GDM> diet controlled) Meds/Allgy - Home Medications Home Medications: Ambulatory Orders Medication Instructions Recorded Confirmed RX: traMADol [Ultram] 150 mg PO BID 01/20/14 12/10/17 RX: Citalopram [CeleXA] 10 04/23/19 - Allergies Allergies/Adverse Reactions: Allergies Allergy/AdvReac Type Severity Reaction Status Date / Time No Known Drug Allergies Allergy Verified 01/24/18 14:16 Review of Systems - All Other Systems All Other Systems: reports: Other (As noted otherwise negative) Physical - Abdominal Exam Vital Signs: Temp Pulse Resp BP Pulse Ox 98.8 F 79 18 124/66 98 04/23/19 14:59 04/23/19 14:59 04/23/19 14:59 04/23/19 14:59 04/23/19 14:59 Contraction Frequency (min/apart): irregular Contraction Intensity: positive: Mild to moderate Uterine Resting Tone: positive: Soft - Monitoring Strip Review: positive: Category I - Presentation Presentation: positive: Vertex (By scan) - Vaginal Exam Membranes: positive: Membranes intact Dilation (in cm): Closed Effacement (%): 80% Station: positive: -3 Cervical Position: positive: Posterior (Very soft) - Speculum Exam Speculum Exam Performed: positive: No Plan for Labor - Plan For Labor Plan for Labor: 38yo at 37 2/7 weeks here with prodromal labor. GDM Neg GBS H/O precipitous deliveries. Will observe for a few hours and reassess.
== END 2019-04-23 17:20 | disposition home or self-care (01) ==
LOC: WFO 14:27 → FBP 14:29 → WFO 17:20
PROVIDERS: ATTEND Obstetrics & Gynecology
DX: O47.1 False labor at or after 37 completed weeks of gestation (principal); Z3A.37 37 weeks gestation of pregnancy
CPT/HCPCS: 99213

== ENCOUNTER 2019-05-07 21:22 | Outpatient (CLI) | payer MEDICAID ==
[2019-05-07 21:47] VITALS: BP 113/60
--- NOTE | 2019-05-13 15:37 | PROVIDER PROGRESS NOTE ---
- HPI Chief Complaint: Labor Check Current : Current EDU 05/13/19 Gestation 39 Weeks and 1 Days 6 Para 4 Vital Signs Blood Pressure 145/82 H 05/07/19 21:28 Temperature Heart Rate Respiratory Rate Blood Pressure 113/60 05/07/19 21:46 O2 Saturation - Procedures OB Procedure Performed: NST Diagnosis/Indication for NST: Other NST Procedure: NST Procedure Start Date 05/07/19 Start Time 21:31 Stop Time 22:21 Vibroacoustic Stimulation Used No Patient States Movement Yes 115 od [place]ico 15x15 accels no decels Intermittent ctx Service Date of procedure: 05/07/19 Procedure Details: Patient is a 38 yo at 39+1 wga here for labor check complicated by presumed GDM, mild range BPs, maternal tramadol use, pending grandmultiparity having contractions Cervical exam, closed/50/-3 station Findings: Cat I tracing SVE closed/50/high - Plan Plan: 38 yo with hx of fast labor, presumed GDM, tramadol use, mild range BPs Offered IOL but patient prefers to return for IOL tomorrow Will return tomorrow for IOL
== END 2019-05-07 22:30 | disposition home or self-care (01) ==
LOC: WFO 21:22 → FBP 21:25 → WFO 22:30
PROVIDERS: ATTEND Obstetrics & Gynecology
DX: O09.43 Supervision of pregnancy with grand multiparity, third trimester (principal); Z3A.39 39 weeks gestation of pregnancy; Z79.891 Long term (current) use of opiate analgesic
CPT/HCPCS: 99212; 99213

== ENCOUNTER 2019-06-12 13:20 | Outpatient (CLI) | payer MEDICAID | END 2019-06-12 23:59 | disposition home or self-care (01) | LOC: LAB.R 13:20 | PROVIDERS: ATTEND Physician Assistant | DX: J02.9 Acute pharyngitis, unspecified (principal) | CPT/HCPCS: 87070; 87077 ==

== ENCOUNTER 2019-11-04 16:09 | Emergency (ER) | payer MEDICAID ==
[2019-11-04 16:19] VITALS: BP 127/72
--- NOTE | 2019-11-04 17:41 | ED Physician Documentation ---
History of Present Illness - Stated complaint Stated Complaint: LT EAR PX,LOSS OF HEARING - Chief complaint Chief Complaint: Heent - History obtained from History obtained from: Patient - History of Present Illness Timing: How many days ago (2-3) Pain level max: 5 Pain level now: 5 - Additonal information Additional information: 39-year-old female with left ear pain for the past several days, increasing today. Nothing makes it better or worse. No drainage. No fevers. No chills. No rhinorrhea or congestion. No sore throat. No possibility of . Review of Systems Constitutional: denies: Fever, Chills Nose: denies: Rhinorrhea / runny nose, Congestion Throat: denies: Sore throat Respiratory: denies: Dyspnea, Cough GI: denies: Vomiting Musculoskeletal: denies: Neck pain, Back pain Neurologic: denies: Headache PD PAST MEDICAL HISTORY - Past Medical History Cardiovascular: None Respiratory: None, Other (recent URI) Neuro: None Endocrine/Autoimmune: Other (possible gestational diabetes) GI: None : None Musculoskeletal: Fibromyalgia, Chronic back pain Derm: None - Past Surgical History Past Surgical History: No - Present Medications Home Medications: Ambulatory Orders Medication Instructions Recorded Confirmed traMADol [Ultram] 150 mg PO BID 01/20/14 12/10/17 Citalopram [CeleXA] 10 04/23/19 Ciproflox/Dexameth Otic Drops 4 drops OT BID #1 bottle 11/04/19 [Ciprodex] - Allergies Allergies/Adverse Reactions: Allergies Allergy/AdvReac Type Severity Reaction Status Date / Time No Known Drug Allergies Allergy Verified 11/04/19 16:19 - Social History Does the pt smoke?: No Smoking Status: Never smoker Does the pt drink ETOH?: No Does the pt have substance abuse?: No - Immunizations Immunizations are current?: Yes - POLST Patient has POLST: No PD ED PE NORMAL - Vitals Vital signs reviewed: Yes - General General: Alert and oriented X 3, No acute distress, Well developed/nourished - HEENT HEENT: PERRL, Moist mucous membranes, Pharynx benign, Other (R ear is normal. Left ear has a swollen erythematous canal. Normal TM.) - Neck Neck: Supple, no meningeal sign - Cardiac Cardiac: RRR, Strong equal pulses - Respiratory Respiratory: No respiratory distress, Clear bilaterally - Derm Derm: Warm and dry - Neuro Neuro: Alert and oriented X 3 - Psych Psych: Normal mood, Normal affect Results - Vitals Vitals: Vital Signs - 24 hr 11/04/19 16:17 Temperature 36.3 C L Heart Rate 113 H Respiratory 16 Rate Blood Pressure 127/72 O2 Saturation 96 Oxygen O2 Source Room air PD MEDICAL DECISION MAKING - ED course Complexity details: considered differential, d/w patient ED course: Patient with left acute otitis externa. Will place on Ciprodex and have her follow-up with her doctor. No evidence of necrotizing otitis externa. Patient counseled regarding signs and symptoms for which I believe and urgent re- evaluation would be necessary. Patient with good understanding of and agreement to plan and is comfortable going home at this time This document was made in part using voice recognition software. While efforts are made to proofread this document, sound alike and grammatical errors may occur. Departure - Departure Disposition: 01 Home, Self Care Clinical Impression: Otitis externa Qualifiers: Otitis externa type: unspecified type Chronicity: acute Laterality: left Qualified Code(s): H60.502 - Unspecified acute noninfective otitis externa, left ear Condition: Good Instructions: ED Otitis Externa Follow-Up: Madonna Nieves DO [Primary Care Provider] - Within 1 week Prescriptions: Ciproflox/Dexameth Otic Drops [Ciprodex] 4 drops OT BID #1 bottle Comments: Use the eardrops as prescribed. Return if you worsen. Follow-up with your doctor for further care. Discharge Date/Time: 11/04/19 17:47
== END 2019-11-04 17:47 | disposition home or self-care (01) ==
LOC: ED 16:09
DX: H60.502 Unspecified acute noninfective otitis externa, left ear (principal)
CPT/HCPCS: 99282; 99284

== ENCOUNTER 2021-07-03 18:38 | Emergency (ER) | payer MEDICAID ==
[2021-07-03 18:47] VITALS: BP 142/69
--- NOTE | 2021-07-03 18:59 | ED Physician Documentation ---
History of Present Illness - Stated complaint Stated Complaint: RT EAR & FACE PX - Chief complaint Chief Complaint: Heent - History obtained from History obtained from: Patient - History of Present Illness Timing: How many days ago (3) Pain level max: 8 Pain level now: 8 - Additonal information Additional information: Patient is a 40-year-old female who presents to the emergency department with right ear pain. She states that she has had chronic recurrent ear infections. This feels similar to prior. She has been on oral and topical antibiotics. She states that she has a mixture of otitis media and otitis externa. Has occurred 4-5 times in the past 18 months. Has not seen an ENT. Nothing makes it better. Worse with cold air, movement. Review of Systems Constitutional: denies: Fever, Chills Respiratory: denies: Cough GI: denies: Abdominal Pain, Nausea, Vomiting, Diarrhea : denies: Now EGA Skin: denies: Rash PD PAST MEDICAL HISTORY - Past Medical History Cardiovascular: None Respiratory: None, Other (recent URI) Neuro: None Endocrine/Autoimmune: Other (possible gestational diabetes) GI: None : None Musculoskeletal: Fibromyalgia, Chronic back pain Derm: None - Past Surgical History Past Surgical History: No - Present Medications Home Medications: Ambulatory Orders Medication Instructions Recorded Confirmed traMADol [Ultram] 150 mg PO BID 01/20/14 12/10/17 Citalopram [CeleXA] 10 04/23/19 Ciproflox/Dexameth Otic Drops 4 drops OT BID #1 bottle 11/04/19 [Ciprodex] Amox/Clav 875/125 [Augmentin] 1 each PO Q8H #30 tablet 07/03/21 Ciproflox/Dexameth Otic Drops 4 drops OT BID #1 bottle 07/03/21 [Ciprodex] - Allergies Allergies/Adverse Reactions: Allergies Allergy/AdvReac Type Severity Reaction Status Date / Time No Known Drug Allergies Allergy Verified 07/03/21 18:43 - Social History Does the pt smoke?: No Smoking Status: Never smoker Does the pt drink ETOH?: No Does the pt have substance abuse?: No - Immunizations Immunizations are current?: Yes - POLST Patient has POLST: No PD ED PE NORMAL - Vitals Vital signs reviewed: Yes - General General: Alert and oriented X 3, No acute distress, Well developed/nourished - HEENT HEENT: PERRL, Moist mucous membranes, Other (Left ear is normal. Right ear canal is swollen, unable to visualize the tympanic membrane. The canal is nearly swollen shut. Mild white drainage) - Neck Neck: Supple, no meningeal sign - Derm Derm: Warm and dry - Neuro Neuro: Alert and oriented X 3 - Psych Psych: Normal mood, Normal affect Results - Vitals Vitals: Vital Signs - 24 hr 07/03/21 18:44 Temperature 36.5 C Heart Rate 110 H Respiratory 16 Rate Blood Pressure 142/69 H O2 Saturation 98 Oxygen O2 Source Room air PD MEDICAL DECISION MAKING - ED course Complexity details: reviewed results, re-evaluated patient, considered differential, d/w patient ED course: Patient with a right acute otitis externa, possible otitis media as well. Ear canal is nearly fully occluded. Will place on otic drops as well as oral antibiotics. As this has been a very recurrent problem over the last 18 months, recommend she follow-up with ENT. Patient counseled regarding signs and symptoms for which I believe and urgent re-evaluation would be necessary. Patient with good understanding of and agreement to plan and is comfortable going home at this time This document was made in part using voice recognition software. While efforts are made to proofread this document, sound alike and grammatical errors may occur. Departure - Departure Disposition: 01 Home, Self Care Clinical Impression: Otitis externa Qualifiers: Otitis externa type: unspecified type Chronicity: acute Laterality: right Qualified Code(s): H60.501 - Unspecified acute noninfective otitis externa, right ear Otitis media Qualifiers: Otitis media type: suppurative Chronicity: acute Laterality: right Recurrence: not specified as recurrent Spontaneous tympanic membrane rupture: without spontaneous rupture Qualified Code(s): H66.001 - Acute suppurative otitis media without spontaneous rupture of ear drum, right ear Condition: Good Instructions: ED Otitis Externa Follow-Up: [facility] [Provider Group] Jai Jung MD [Primary Care Provider] - Within 1 week Prescriptions: Amox/Clav 875/125 [Augmentin] 1 each PO Q8H #30 tablet Ciproflox/Dexameth Otic Drops [Ciprodex] 4 drops OT BID #1 bottle Comments: Please take all antibiotics until gone. Please follow-up with ENT for further care. Return if you worsen. Your prescriptions were sent to [facility] in [place]. Discharge Date/Time: 07/03/21 19:06
[2021-07-03] MEDS ORDERED: AMOX/CLAV 875 MG/125 MG TABLET PO STA (19:00)
== END 2021-07-03 19:06 | disposition home or self-care (01) ==
LOC: ED 18:38
DX: H60.501 Unspecified acute noninfective otitis externa, right ear (principal); H66.001 Acute suppurative otitis media without spontaneous rupture of ear drum, right ear
CPT/HCPCS: 99282; 99284; A9270

== ENCOUNTER 2021-11-07 19:03 | Outpatient (CLI) | payer MEDICAID | END 2021-11-07 19:04 | disposition EMS.NT | LOC: EMS 19:03 | DX: F41.9 Anxiety disorder, unspecified (principal); R51.9 Headache, unspecified ==

== ENCOUNTER 2022-03-13 15:03 | Outpatient (CLI) | payer OTHER ==
[2022-03-13 15:16] LABS: BASOPHILS # (AUTO) 0.1 10^3/uL (0.0-0.1); EOSINOPHILS # (AUTO) 0.2 10^3/uL (0.0-0.7); EOSINOPHILS % (AUTO) 2.9 %; HCT - HEMATOCRIT 44.6 % (37.0-47.0); HGB - HEMOGLOBIN 14.6 g/dL (12.0-16.0); LYMPHOCYTES # (AUTO) 2.1 10^3/uL (1.5-3.5); LYMPHOCYTES % (AUTO) 31.1 %; MEAN CORPUSCULAR HEMOGLOBIN 29.6 pg (27.0-31.0); MEAN CORPUSCULAR HGB CONC 32.7 g/dL (32.0-36.0); MEAN CORPUSCULAR VOLUME 90.5 fL (81.0-99.0); MEAN PLATELET VOLUME 10.9 fL (7.9-10.8); MONOCYTES # (AUTO) 0.3 10^3/uL (0.0-1.0); NEUTROPHILS # (AUTO) 4.1 10^3/uL (1.5-6.6); NEUTROPHILS % (AUTO) 59.9 %; PLT - PLATELET COUNT 239 10^3/uL (130-450); RED BLOOD COUNT 4.93 10^6/uL (4.20-5.40); WHITE BLOOD COUNT 6.8 x10^3/uL (4.8-10.8)
[2022-03-13 15:29] LABS: ALBUMIN 3.8 g/dL (3.2-5.5); ALBUMIN/GLOBULIN RATIO 1.1 (1.0-2.2); BILIRUBIN,TOTAL 0.6 mg/dL (0.2-1.0); CREATININE 0.8 mg/dL (0.4-1.0); TOTAL PROTEIN 7.3 g/dL (6.7-8.2)
[2022-03-13 21:19] LABS: ESTIMATED AVERAGE GLUCOSE 114 mg/dL (70-100); HEMOGLOBIN A1c% 5.6 % (4.27-6.07)
== END 2022-03-13 15:04 | disposition home or self-care (01) ==
LOC: LAB.R 15:03
PROVIDERS: ATTEND Registered Nurse
DX: R79.89 Other specified abnormal findings of blood chemistry (principal); R73.09 Other abnormal glucose; R94.6 Abnormal results of thyroid function studies
CPT/HCPCS: 80053; 83036; 84443; 85025

== ENCOUNTER 2022-08-09 21:37 | Emergency (ER) | payer MEDICAID, OTHER ==
[2022-08-09 21:46] VITALS: BP 138/90
--- NOTE | 2022-08-09 22:16 | ED Physician Documentation ---
PD HPI UPPER EXT INJURY - Stated complaint Stated Complaint: R SIDE SWOLLEN/DIZZY - Chief complaint Chief Complaint: Heent - History obtained from History obtained from: Patient - Additonal information Additional information: Patient is a 41-year-old female presenting for evaluation of redness and swel ling noted to the right hand starting 1 to 2 days ago. Patient states that she has been working outside a lot helping a relative with her home. She has been painting and has caked paint on her nails to the affected hand. She states that she noticed the redness and swelling which seems to be worsening over the past day. She denies any known fevers. She also reports having symptoms of a sore throat for the past 2 weeks.She states that that just seems like it is starting to get better in the last day or so. No chest pain, cough, difficulty breathing, abdominal pain. She is right-hand dominant. She denies any known injury. She is Unaware of any wounds to the hand. Review of Systems Constitutional: denies: Fever Throat: reports: Sore throat Cardiac: denies: Chest pain / pressure Respiratory: denies: Dyspnea GI: denies: Abdominal Pain Skin: reports: Rash Musculoskeletal: reports: Extremity swelling PD PAST MEDICAL HISTORY - Past Medical History Cardiovascular: None Respiratory: None, Other (recent URI) Neuro: None Endocrine/Autoimmune: Other (possible gestational diabetes) GI: None : None Musculoskeletal: Fibromyalgia, Chronic back pain Derm: None - Past Surgical History Past Surgical History: No - Present Medications Home Medications: Ambulatory Orders Medication Instructions Recorded Confirmed traMADol [Ultram] 150 mg PO BID 01/20/14 12/10/17 Citalopram [CeleXA] 10 04/23/19 Ciproflox/Dexameth Otic Drops 4 drops OT BID #1 bottle 11/04/19 [Ciprodex] Amox/Clav 875/125 [Augmentin] 1 each PO Q8H #30 tablet 07/03/21 Ciproflox/Dexameth Otic Drops 4 drops OT BID #1 bottle 07/03/21 [Ciprodex] cephALEXin [Keflex] 500 mg PO Q6H #28 cap 08/09/22 - Allergies Allergies/Adverse Reactions: Allergies Allergy/AdvReac Type Severity Reaction Status Date / Time No Known Drug Allergies Allergy Verified 08/09/22 21:41 - Social History Does the pt smoke?: No Smoking Status: Never smoker Does the pt drink ETOH?: No Does the pt have substance abuse?: No - Immunizations Immunizations are current?: Yes - POLST Patient has POLST: No PD ED PE NORMAL - General General: Alert and oriented X 3, No acute distress, Well developed/nourished - HEENT HEENT: Atraumatic, Moist mucous membranes, Pharynx benign (No oral swelling, erythema or exudate) - Neck Neck: Supple, no meningeal sign - Cardiac Cardiac: RRR, Strong equal pulses - Respiratory Respiratory: No respiratory distress, Clear bilaterally - Extremities Extremities: Other (Mild erythema and swelling to dorsum of right hand And middle digit, able to flex and extend at all joints, no tenderness over flexor tendon sheath; Dried paint to fingernails/fingertips) - Neuro Neuro: No motor deficit, No sensory deficit PD ED PE EXPANDED - Extremities JENNIFER UE/Hands Visual: 1 - rash 2 - rash Results - Vitals Vitals: Vital Signs - 24 hr 08/09/22 21:41 Temperature 36.5 C Heart Rate 115 H Respiratory 18 Rate Blood Pressure 138/90 H O2 Saturation 98 Oxygen O2 Source Room air PD Medical Decision Making - ED course ED course: Patient presenting for evaluation of redness and swelling to right hand. No fever. Has good range of motion at joints of right hand. No signs of flexor tenosynovitis, abscess or deep space infection. Appears to have a cellulitis though to the hand.Unclear source although she has been working outside and has dried paint to the fingertips. We will start patient on oral antibiot ics.Patient counseled on need for close follow-up as well as concerning symptoms to return for. Departure - Departure Disposition: 01 Home, Self Care Clinical Impression: Cellulitis of right hand Condition: Stable Instructions: ED Infec Skin Cellulitis Prescriptions: cephALEXin [Keflex] 500 mg PO Q6H #28 cap Comments: Your exam findings are concerning for a skin infection called cellulitis to your right hand.May have started from a small wound from working outside. I am starting you on an oral antibiotic called cephalexin. I have sent this prescription to [facility]. You received the first dose tonight. Please make sure to complete the course of the antibiotic. I would expect improvement with 24 to 48 hours of antibiotic use. If you develop any worsening symptoms such as fever, increased redness or swelling, increased pain or have any new concerns please return to the emergency department. Discharge Date/Time: 08/09/22 22:37
[2022-08-09] MEDS: cephALEXin 250 MG CAPSULE PO STA (22:32)
== END 2022-08-09 22:37 | disposition home or self-care (01) ==
LOC: ED 21:37
DX: L03.113 Cellulitis of right upper limb (principal)
CPT/HCPCS: 99282; 99283; A9270

== ENCOUNTER 2023-01-01 13:38 | Emergency (ER) | payer MEDICAID ==
[2023-01-01 13:53] VITALS: BP 123/81; O2SAT 98
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
== END 2023-01-01 15:38 | disposition home or self-care (01) ==
LOC: ED 13:38
DX: S06.0X0A Concussion without loss of consciousness, initial encounter (principal); V49.40XA Driver injured in collision with unspecified motor vehicles in traffic accident, initial encounter; Y93.89 Activity, other specified; F41.9 Anxiety disorder, unspecified
CPT/HCPCS: 99282; 99283

== ENCOUNTER 2023-07-06 08:00 | Outpatient (CLI) | payer MEDICAID | END 2023-07-06 23:59 | disposition home or self-care (01) | LOC: LAB.N 08:00 | PROVIDERS: ATTEND Nurse Practitioner | DX: H60.90 Unspecified otitis externa, unspecified ear (principal) | CPT/HCPCS: 87070; 87077; 87205 ==